=== PATIENT | female | born 1960 | race Caucasian/White ===

== ENCOUNTER 2016-10-06 19:51 | Emergency (ER) | payer BC ==
[2016-10-06 20:43] VITALS: BP 130/75
--- NOTE | 2016-10-07 20:43 | UC ---
Tom Phelps Aidan, scribed for Sil Roque MD on 10/06/16 at 202 . FLU HPI - HPI Summary HPI Summary: 55 y/o female presents to the Urgent Care with a complaint of acute, constant, moderate influenza-like symptoms that include a sore throat, congestion, diffuse body aches, and a fever of 100 earlier today. Pt denies any swollen tonsils. Lastly, she has had a flu-shot this year - History of Current Complaint Chief Complaint: UCflu Stated Complaint: FEVER SORE THROAT BODY ACHE Time Seen by Provider: 10/06/16 20:08 Hx Obtained From: Patient Hx Last Menstrual Period: 55 y/o female ?: No Onset/Duration: Sudden Onset, Lasting Days - one, Still Present Severity Currently: Moderate Severity Initially: Moderate Pain Intensity: 0 Pain Scale Used: 0-10 Numeric Associated Signs & Symptoms: Positive: Fever - of 100, T Max - 100, Myalgia, Sore Throat, Nasal Congestion. Negative: Negative - congestion, diffuse body aches, sore throat - Risk Factors Influenza Risk Factors: Negative - Allergy/Home Medications Allergies/Adverse Reactions: Allergies Allergy/AdvReac Type Severity Reaction Status Date / Time No Known Allergies Allergy Verified 10/06/16 20:01 Home Medications: Home Medications Cholecalciferol TAB* [Vitamin D TAB*] 10/06/16 [History] Estradiol VAGINAL TAB(NF) [Vagifem] 10/06/16 [History] PMH/Surg Hx/FS Hx/Imm Hx Endocrine History Of: Denies: Diabetes, Thyroid Disease Cardiovascular History Of: Denies: Cardiac Disorders, Hypertension, Pacemaker/ICD Respiratory History Of: Denies: COPD, Asthma GI/ History Of: Denies: Ulcer Psychological History Of: Reports: Depression Cancer History Of: Denies: Breast Cancer - Surgical History Surgical History: Yes Surgery Procedure, Year, and Place: GALLBLADDER. . OTOPOLASTY - Family History Known Family History: Positive: Hypertension - Social History Occupation: Employed Full-time Lives: Alone Alcohol Use: Occasionally Substance Use Type: None Smoking Status (MU): Never Smoked Tobacco - Immunization History Most Recent Influenza Vaccination: fall 2015 Review of Systems Constitutional: Fever Skin: Negative Eyes: Negative ENT: Sore Throat, Other - congestion Respiratory: Negative Cardiovascular: Negative Gastrointestinal: Negative Genitourinary: Negative Motor: Negative Neurovascular: Negative Musculoskeletal: Arthralgia - diffuse body aches, Myalgia Neurological: Negative Psychological: Negative All Other Systems Reviewed And Are Negative: Yes Physical Exam Triage Information Reviewed: Yes Appearance: No Pain Distress, Well-Nourished, Ill-Appearing Vital Signs: Initial Vital Signs Temp 98.6 F 10/06/16 19:56 Pulse 89 10/06/16 19:56 Resp 16 10/06/16 19:56 BP 133/65 10/06/16 19:56 Pulse Ox 99 10/06/16 19:56 Vital Signs Reviewed: Yes Eyes: Positive: Conjunctiva Clear ENT: Positive: Normal ENT inspection, Pharynx normal, TMs normal Neck: Positive: Supple, Nontender, No Lymphadenopathy Respiratory: Positive: Lungs clear, Normal breath sounds, No respiratory distress Cardiovascular: Positive: RRR, Pulses Normal, Brisk Capillary Refill Abdomen Description: Positive: Nontender, No Organomegaly, Soft. Negative: Distended, Guarding Musculoskeletal: Positive: Strength Intact, ROM Intact Neurological: Positive: Alert, Muscle Tone Normal Psychological Exam: Normal Skin Exam: Normal Re-Evaluation - Re-Evaluation First Eval Re-Evaluation Time: 21:15 - On re-evaluation, the patient was feeling moderately better. Change: Improved Flu Course/Dx - Course Course Of Treatment: influenza A and B neg - Differential Dx/Diagnosis Differential Diagnosis/HQI/PQRI: Bronchitis, Influenza, Upper Respiratory Infection, Other - viral syndrome Provider Diagnoses: viral syndrome Discharge - Discharge Plan Condition: Stable Disposition: HOME Patient Education Materials: Viral Syndrome (ED) Forms: *Work Release Referrals: Manisha Land MD [Primary Care Provider] - The documentation as recorded by the Tom mendoza Aidan accurately reflects the service I personally performed and the decisions made by , Sil Roque MD.
== END 2016-10-06 21:20 | disposition home or self-care (01) ==
LOC: UCEAST 19:51
DX: B34.9 Viral infection, unspecified (principal)
CPT/HCPCS: 87502; 99212; G0463

== ENCOUNTER 2017-05-14 07:56 | Day surgery (SDC) | payer BC ==
[~2017-05-14 07:56] MED LIST: Acetaminophen TAB* 325 MG ONE; Acetaminophen TAB* 325 MG PO ONE; Buffered Lidocaine 0.9% SYRIN* 5 ML/SYR SYRINGE INTRADERM ONE; Dexamethasone IV* 4 MG/ML 1 ML (4 MG) IV SLOW PU ONE; Dexamethasone IV* 4 MG/ML 1 ML (4 MG) ONE; Famotidine IV* 10 MG/ML 2 ML (20 mg) IV ONE; Famotidine IV* 10 MG/ML 2 ML (20 mg) ONE
[2017-05-14] MEDS ORDERED: ceFAZolin 2 GM PREMIX (*) 50 ML IVPB ONE (08:06)
[2017-05-14] MEDS ORDERED: Propofol* 10 MG/ML 20 ML BTL IV PUSH ONE ×2 (08:36→09:14)
[2017-05-14] MEDS ORDERED: fentaNYL* 50 MCG/ML 2 ML VIAL (100 MCG VIAL) ONE (09:15)
[2017-05-14] MEDS ORDERED: Midazolam* 1 MG/ML 2 ML VIAL (2 MG) ONE (09:15)
[2017-05-14] MEDS ORDERED: Bupivacaine 0.25% SDV* 30 ML ONE (09:34)
[2017-05-14] MEDS ORDERED: KETAMINE HCL* 50 MG/ML 10 ML VIAL ONE (09:43)
[2017-05-14] MEDS ORDERED: Ibuprofen TAB* 400 MG PO PRN (09:49)
[2017-05-14] MEDS ORDERED: oxyCODONE TAB* 5 MG TAB PO PRN (09:49)
[2017-05-14] MEDS ORDERED: Ondansetron INJ* 2 MG/ML VIAL IV PRN (09:49)
[2017-05-14] MEDS ORDERED: fentaNYL* 50 MCG/ML 2 ML VIAL (100 MCG VIAL) IV PRN (09:49)
[2017-05-14] MEDS ORDERED: HYDROmorphone INJ* 1 MG/ML CARPUJECT SYRINGE IV PRN (09:49)
[2017-05-14 11:04] VITALS: BP 131/73
--- NOTE | 2017-05-15 11:43 | OP ---
OPERATIVE REPORT: DATE OF OPERATION: 05/14/17 - LILLIE DATE OF : 62 SURGEON: Derrell Corbin MD. TOURIST INFORMATION OFFICER: ROBERT Vargas. ANESTHESIOLOGIST: Dr. Reilly ANESTHESIA: Local MAC. PRE-OP DIAGNOSIS: Right ring finger indeterminate soft tissue mass. POST-OP DIAGNOSIS: Right ring finger ganglion cyst. OPERATIVE PROCEDURE: Excision of deep, right ring finger ganglion cyst. INDICATIONS: Brooke had a rather large mass on the dorsal radial aspect of the right ring finger. She had presented to my office. It was rather an atypical location for a ganglion. I told that it was indeterminate and we could excise it or observe it. She had elected to have it excised. It was quite large and bothering her. We talked about risks and benefits. ESTIMATED BLOOD LOSS: 2 mL. COMPLICATIONS: None. FINDINGS: Large ganglion cyst emanating off the dorsal capsule of the PIP joint and protruding between the central slip and lateral band. DESCRIPTION OF PROCEDURE: Brooke was seen in the preoperative holding area. The correct side, site, and procedure were identified. We came back to the operating room, where she got some sedation and then I administered a digital block with 0.25% Marcaine. The arm was then prepped and draped in the usual fashion and a time-out was performed. I began by exsanguinating the arm. Then, tourniquet was inflated to 250 mmHg. I made a curvilinear incision over the mass, starting more centrally proximally and then coming down towards the mid axial line towards the PIP joint. Full- thickness flap was raised off the mass. A ganglion cyst was identified. It was protruding between the central slip and the lateral band. I used the Pala blader and the tenotomy scissors to delineate the margins of the cyst. It was raised from proximal to distal. It was emanating from underneath the central slip of the dorsal PIP joint capsule. I followed it all the way back to the capsule and retracted the tendons with a couple of 2 prong skin hooks very carefully. Once I had taken it back to the capsule, I went ahead and amputated off the cyst and cauterized the base of the cyst with the bipolar cautery. I put one 4-0 Ethibond suture between central slip and the lateral band distally. I then irrigated out the wound. The skin was closed with 4-0 nylon suture. Tourniquet was deflated and the hand pinked up immediately. The wound was dressed with Xeroform, 4x4s, and Coban. She was taken to the recovery room in stable condition. [id number]/[facility] #: [id number] [facility]mma
== END 2017-05-14 11:13 | disposition home or self-care (01) ==
LOC: OREAST 07:56
PROVIDERS: ATTEND Orthopaedic Surgery Hand Surgery
DX: M67.441 Ganglion, right hand (principal); D64.9 Anemia, unspecified
CPT/HCPCS: 88304; A9270-GY; J0690; J1100; J2250; J2704; J3010